=== PATIENT | female | born 1960 | race Caucasian/White ===

== ENCOUNTER 2017-10-02 22:37 | Emergency (ER) | payer BC ==
[2017-10-02] MEDS ORDERED: Ibuprofen 600 MG Tab PO ONE (23:19)
--- NOTE | 2017-10-02 23:24 | EDM.PDOC ---
ED HPI GENERAL MEDICAL PROBLEM - General Chief Complaint: Upper Extremity Injury/Pain Stated Complaint: RT WRIST PAIN Time Seen by Provider: 10/02/17 22:40 Source of Information: Reports: Patient, Family History Limitations: Reports: No Limitations - History of Present Illness INITIAL COMMENTS - FREE TEXT/NARRATIVE: 57 y.o.w.f -smoker-came to the ed with her SO after she fell on ice at her own home onto her right hand/wrist, Pt has severe pain at her right wrist with any kinds of movement but refused pain meds initially[facility]. No N/V/D or any other acute medical issue BP 100/59 pulse 64 temp 36.6 O2 sat 97% 0n RA Onset Date: 10/02/17 Onset Time: 22:00 Duration: Hour(s):, Getting Worse Location: Reports: Upper Extremity, Right Quality: Reports: Ache, Burning, Dull, Pressure, Stabbing, Throbbing Severity: Moderate Improves with: Reports: Rest Worsens with: Reports: Movement Context: Reports: Trauma (fell on ICE at home) Associated Symptoms: Reports: No Other Symptoms Rt wrist Pain Score (Numeric/FACES): 8 - Related Data Allergies Allergy/AdvReac Type Severity Reaction Status Date / Time Penicillins Allergy Hives Verified 10/02/17 23:00 Home Meds: Home Meds Escitalopram [Lexapro] 20 mg PO DAILY 10/02/17 [History] Melatonin 5 mg PO DAILY 10/02/17 [History] buPROPion [Wellbutrin] 75 mg PO DAILY 10/02/17 [History] Acetaminophen/HYDROcodone [[place] 167.5-5 MG] 1 tab PO Q4H PRN #7 tablet [Rx] Past Medical History HEENT History: Reports: Impaired Vision Psychiatric History: Reports: Anxiety, Depression, Panic Attack Social & Family History - Family History Family Medical History: Noncontributory - Tobacco Use Smoking Status *Q: Current Every Day Smoker Years of Tobacco use: 15 Packs/Tins Daily: 0.4 - Caffeine Use Caffeine Use: Reports: Coffee, Energy Drinks, Soda, Tea - Alcohol Use Days Per Week of Alcohol Use: 1 - Recreational Drug Use Recreational Drug Use: No Review of Systems - Review of Systems Review Of Systems: See Below Constitutional: Reports: No Symptoms Eyes: Reports: No Symptoms Ears: Reports: No Symptoms Nose: Reports: No Symptoms Mouth/Throat: Reports: No Symptoms Respiratory: Reports: No Symptoms Cardiovascular: Reports: No Symptoms GI/Abdominal: Reports: No Symptoms Genitourinary: Reports: No Symptoms Musculoskeletal: Reports: Joint Pain (wrist pain) Skin: Reports: No Symptoms Neurological: Reports: No Symptoms Psychiatric: Reports: No Symptoms ED EXAM, GENERAL - Physical Exam Exam: See Below Exam Limited By: No Limitations General Appearance: Alert, WD/WN, Mild Distress, Thin Eye Exam: Bilateral Eye: Normal Inspection Ears: Normal External Exam Ear Exam: Bilateral Ear: Auricle Normal Nose: Normal Inspection, Normal Mucosa Throat/Mouth: Normal Inspection, Normal Lips Head: Atraumatic, Normocephalic Neck: Normal Inspection, Supple, Non-Tender, Full Range of Motion Respiratory/Chest: No Respiratory Distress, Lungs Clear, Normal Breath Sounds, Chest Non-Tender Cardiovascular: Normal Peripheral Pulses, Regular Rate, Rhythm, No Edema, No Gallop Peripheral Pulses: 1+: Brachial (R) GI/Abdominal: Normal Bowel Sounds, Soft, Non-Tender, No Organomegaly, No Abnormal Bruit, No Mass, Pelvis Stable (Female) Exam: Deferred Rectal (Female) Exam: Deferred Back Exam: Normal Inspection, Full Range of Motion Extremities: Normal Capillary Refill, Limited Range of Motion (right wrist) Neurological: Alert, Oriented, CN II-XII Intact, Normal Cognition, Normal Gait, No Motor/Sensory Deficits Psychiatric: Normal Affect, Normal Mood Skin Exam: Warm, Dry, Intact, Normal Color, No Rash Lymphatic: No Adenopathy Course - Vital Signs Text/Narrative:: 57 y.o.w.f -smoker-came to the ed with her SO after she fell on ice at her own home onto her right hand/wrist, Pt has severe pain at her right wrist with any kinds of movement but refused pain meds initially. Mech of injury is not known at this time. No N/V/D or any other acute medical issue BP 100/59 pulse 64 temp 36.6 O2 sat 97% 0n RA PE: This WD W F with deformity and pain at her right wrist. Imaging: comminuted Fx right distal radius and ulna Impression: comminuted Fx right distal radius and ulna, unstable, closed Tx: [employer] [place] Ice splint, sling 11.[address] Meadows, [facility]: Splint, sling Ice etc. pt must make an appointment at the ortho clinic Reexam: CAP refill < 2 sec pt was able to move her fingers after splint was applied Plan: D/C with instructions Last Recorded V/S: Last Vital Signs Temp 36.7 C 10/03/17 02:45 Pulse 62 10/03/17 02:45 Resp 17 10/03/17 02:45 BP 107/56 L 10/03/17 02:45 Pulse Ox 100 10/03/17 02:45 - Orders/Labs/Meds Orders: Active Orders 24 hr Category Date Time Status Wrist Comp Min 3V Rt [CR] Stat Exams 10/02/17 22:55 Taken Meds: Medications Discontinued Medications Generic Name Dose Route Start Last Admin Trade Name Freq PRN Reason Stop Dose Admin Hydrocodone Bitart/Acetaminophen 1 tab 10/03/17 00:00 10/03/17 00:06 [place] 325-5 Mg PO 10/03/17 00:01 1 tab ONETIME STA Administration Ibuprofen 600 mg 10/02/17 23:19 10/02/17 23:23 Motrin PO 10/02/17 23:20 600 mg ONETIME ONE Administration Ondansetron HCl 8 mg 10/03/17 00:00 10/03/17 00:08 Zofran Odt PO 10/03/17 00:01 8 mg ONETIME STA Administration Departure - Departure Time of Disposition: 02:23 Disposition: Home, Self-Care 01 Condition: Good Clinical Impression: Fracture of distal end of right radius and ulna Qualifiers: Encounter type: initial encounter Fracture type: closed Qualified Code(s): S52.501A - Unspecified fracture of the lower end of right radius, initial encounter for closed fracture - Discharge Information Prescriptions: Acetaminophen/HYDROcodone [[place] 167.5-5 MG] 1 tab PO Q4H PRN #7 tablet PRN Reason: for severe pain only Instructions: Wrist Fracture Treated With Immobilization, Pwod-[id number] Referrals: PCP,None [Ordering Only Provider] - Forms: ED Department Discharge Additional Instructions: Rest, Ice and elevation, please f/u with ortho a.s.a.p, please take Motrin, norco as recommended, please come back if your symptoms get worse acutely - My Orders Last 24 Hours: My Active Orders 10/02/17 22:55 Wrist Comp Min 3V Rt [CR] Stat - Assessment/Plan Last 24 Hours: My Active Orders 10/02/17 22:55 Wrist Comp Min 3V Rt [CR] Stat
[2017-10-03] MEDS ORDERED: Acetaminophen/HYDROcodone 325-5 MG Tab PO STA
[2017-10-03] MEDS ORDERED: Ondansetron 8 MG Tab.DIS PO STA
[2017-10-03 02:52] VITALS: BP 107/56
--- NOTE | 2017-10-03 14:46 | CR ---
INDICATION: Fall, deformity. RIGHT WRIST: Three views of the right wrist revealed severely comminuted fractures at the ulnar styloid and distal radial metaphysis with marked posterior offset of the distal radial fracture fragment and dorsal angulation of the radial joint surface. There also appears to be some overriding of the radial fracture fragments. Ulnar styloid fracture fragments may be deviated medially and dorsally. IMPRESSION: Severe deformity, Colles type fracture radius and ulna. [facility]
== END 2017-10-03 02:45 | disposition home or self-care (01) ==
LOC: FB.ED 22:37
DX: S52.501A Unspecified fracture of the lower end of right radius, initial encounter for closed fracture (principal); S52.601A Unspecified fracture of lower end of right ulna, initial encounter for closed fracture; F17.210 Nicotine dependence, cigarettes, uncomplicated; Z88.0 Allergy status to penicillin; Z79.899 Other long term (current) drug therapy; W00.9XXA Unspecified fall due to ice and snow, initial encounter; Y92.009 Unspecified place in unspecified non-institutional (private) residence as the place of occurrence of the external cause
CPT/HCPCS: 73110; 99283; A9270

== ENCOUNTER 2024-08-31 06:23 | Day surgery (SDC) | payer OTHER ==
[2024-08-31] MEDS ORDERED: Lidocaine 2% 100 MG/5 ML Syringe IVPUSH ONE (06:24)
[2024-08-31] MEDS ORDERED: Propofol 200 MG/20 ML SDV IV ONE (06:24)
[2024-08-31] MEDS ORDERED: Sodium Chloride 0.9% 10 ML Syringe FLUSH PRN (06:45)
[2024-08-31 07:45] VITALS: BP 122/78; PULSE 74
[2024-08-31] MEDS: Lactated Ringers 1,000 ML IV SCH (07:56)
== END 2024-08-31 09:30 | disposition home or self-care (01) ==
LOC: FB.SDS 06:23
PROVIDERS: ATTEND Surgery
DX: K57.31 Diverticulosis of large intestine without perforation or abscess with bleeding (principal); K62.89 Other specified diseases of anus and rectum; F32.A Depression, unspecified; E03.9 Hypothyroidism, unspecified; Z87.891 Personal history of nicotine dependence; Z79.890 Hormone replacement therapy; Z79.899 Other long term (current) drug therapy; Z88.0 Allergy status to penicillin; Z91.013 Allergy to seafood
CPT/HCPCS: 45378; J2704; J7120; 00811